=== PATIENT | female | born 1970 | race Caucasian/White ===

== ENCOUNTER 2016-11-04 13:01 | Emergency (ER) | payer MEDICARE, MEDICAID ==
[~2016-11-04] VITALS: Ht 154.9 cm; Wt 58.1 kg
[2016-11-04] MEDS ORDERED: HYDROMORPHONE2 MG PO (13:32)
[2016-11-04] MEDS ORDERED: ZUPLENZ4 M1 PO (13:33)
[2016-11-04] MEDS ORDERED: WELLBUTRIN SR150 MG PO (13:33)
[2016-11-04] MEDS ORDERED: KLONOPIN0.5 MG PO (13:33)
[2016-11-04] MEDS ORDERED: VENLAFAXINE75 M1 PO (13:33)
[2016-11-04] MEDS ORDERED: IBU800 M1 PO (13:34)
[2016-11-04] MEDS ORDERED: METAXALL800 MG PO (13:34)
[2016-11-04] MEDS ORDERED: VICO75300 PO (13:35)
[2016-11-04 14:08] LABS: BASO # 0.1 10*3/uL (0.0-0.1); BASO % 0.7 % (0.0-1.0); EOS # 0.1 10*3/uL (0.0-0.4); EOS % 0.6 % (1.0-4.0); HEMATOCRIT 44.1 % (37.0-47.0); HEMOGLOBIN 15.1 g/dl (12.0-16.0); LYMPH # 2.8 10*3/uL (1.3-4.4); LYMPH % 27.1 % (27.0-41.0); MEAN CELL VOLUME 92.6 fl (81.0-99.0); MEAN CORPUSCULAR HGB 31.7 pg (27.0-31.0); MEAN CORPUSCULAR HGB CONC 34.2 g/dl (33.0-37.0); MEAN PLATELET VOLUME 9.9 fl (9.6-12.3); MONO # 0.6 10*3/uL (0.1-1.0); MONO % 6.1 % (3.0-9.0); NEUT # 6.8 10*3/uL (2.3-7.9); NEUT % 65.2 % (47.0-73.0); PLATELET COUNT AUTOMATED 351 10*3/uL (130-400); RED BLOOD COUNT 4.76 10*6/uL (4.10-5.10); RED CELL DISTRI WIDTH 12.8 % (0-14.5); WHITE BLOOD COUNT 10.4 10*3/uL (4.8-10.8)
[2016-11-04 14:26] LABS: ALBUMIN 3.7 gm/dl (3.1-4.5); ALKALINE PHOSPHATASE 65 U/L (45-117); BILIRUBIN, TOTAL 0.3 mg/dl (0.2-1.0); BUN 10 mg/dl (7-24); CARBON DIOXIDE 28 mmol/L (21-32); CHLORIDE 105 mmol/L (98-107); CPK 135 U/L (26-192); EST GLOM FILT AFRICAN AMERICAN > 60 ml/min; GLUCOSE 96 mg/dL (65-99); POTASSIUM 4.2 mmol/L (3.5-5.1); SGOT/AST 14 IU/L (3-35); SGPT/ALT 24 U/L (12-78); SODIUM 138 mmol/L (136-145)
== END 2016-11-04 15:34 | disposition home or self-care (01) ==
LOC: ED 13:01
PROVIDERS: Student in an Organized Health Care Education/Training Program
DX: M79.604 Pain in right leg (principal); F17.200 Nicotine dependence, unspecified, uncomplicated; Z79.899 Other long term (current) drug therapy; Z88.0 Allergy status to penicillin; Z88.8 Allergy status to other drugs, medicaments and biological substances

== ENCOUNTER 2017-07-09 22:17 | Emergency (ER) | payer MEDICARE, OTHER ==
[~2017-07-09] VITALS: Ht 154.9 cm; Wt 59.0 kg
[~2017-07-09 22:17] MED LIST: HYDROMORPHONE2 MG PO; IBU800 M1 PO; KLONOPIN0.5 MG PO; METAXALL800 MG PO; VENLAFAXINE75 M1 PO; VICO75300 PO; WELLBUTRIN SR150 MG PO; ZUPLENZ4 M1 PO
[2017-07-09] MEDS ORDERED: CAMBIA50 MG PO (22:28)
[2017-07-09] MEDS ORDERED: WELLBUTRIN SR200 MG PO (22:29)
[2017-07-09] MEDS ORDERED: ONDANSETRON HYDR4 M1 PO (22:29)
[2017-07-09] MEDS ORDERED: SEPTDS PO (22:39)
[2017-07-09] MEDS ORDERED: ALLEGRA-D 24 H1 EACH PO (22:39)
[2017-07-09] MEDS ORDERED: FLONASE ALLERG9.9 ML NAS (22:39)
== END 2017-07-10 00:52 | disposition home or self-care (01) ==
LOC: ED 22:17
DX: J01.90 Acute sinusitis, unspecified (principal); B34.9 Viral infection, unspecified; F17.200 Nicotine dependence, unspecified, uncomplicated; Z90.710 Acquired absence of both cervix and uterus; Z79.899 Other long term (current) drug therapy; Z88.0 Allergy status to penicillin; Z88.8 Allergy status to other drugs, medicaments and biological substances

== ENCOUNTER 2018-10-16 22:07 | Emergency (ER) | payer MEDICARE, OTHER ==
[~2018-10-16] VITALS: Ht 154.9 cm; Wt 61.2 kg
[~2018-10-16 22:07] MED LIST changes: +ALLEGRA-D 24 H1 EACH PO; +CAMBIA50 MG PO; +FLONASE ALLERG9.9 ML NAS; +ONDANSETRON HYDR4 M1 PO; +SEPTDS PO; +WELLBUTRIN SR200 MG PO
== END 2018-10-17 00:59 | disposition home or self-care (01) ==
LOC: ED 22:07
DX: S93.401A Sprain of unspecified ligament of right ankle, initial encounter (principal); Z88.0 Allergy status to penicillin; Z88.8 Allergy status to other drugs, medicaments and biological substances; Z79.899 Other long term (current) drug therapy; X50.1XXA Overexertion from prolonged static or awkward postures, initial encounter; Y93.01 Activity, walking, marching and hiking; Y92.098 Other place in other non-institutional residence as the place of occurrence of the external cause; Y99.8 Other external cause status

== ENCOUNTER → 2018-11-16 | Outpatient (CLI) | payer MEDICARE, OTHER | END | disposition home or self-care (01) | LOC: RAD 15:27 | DX: K59.00 Constipation, unspecified (principal) ==

== ENCOUNTER → 2019-08-15 | Outpatient (CLI) | payer OTHER ==
[2019-08-15 15:35] LABS: BASO # 0.1 10*3/uL (0.0-0.1); EOS # 0.1 10*3/uL (0.0-0.4); EOS % 1.8 % (1.0-4.0); HEMATOCRIT 45.7 % (37.0-47.0); HEMOGLOBIN 15.4 g/dl (12.0-16.0); LYMPH # 1.8 10*3/uL (1.3-4.4); LYMPH % 23.3 % (27.0-41.0); MEAN CELL VOLUME 93.8 fl (81.0-99.0); MEAN CORPUSCULAR HGB 31.6 pg (27.0-31.0); MEAN CORPUSCULAR HGB CONC 33.7 g/dl (33.0-37.0); MEAN PLATELET VOLUME 10.8 fl (9.6-12.3); MONO % 12.5 % (3.0-9.0); NEUT # 4.8 10*3/uL (2.3-7.9); PLATELET COUNT AUTOMATED 256 10*3/uL (130-400); RED BLOOD COUNT 4.87 10*6/uL (4.10-5.10); RED CELL DISTRI WIDTH 13.2 % (0-14.5); WHITE BLOOD COUNT 7.8 10*3/uL (4.8-10.8)
== END | disposition home or self-care (01) ==
LOC: LAB 15:01
PROVIDERS: Family Medicine
DX: N95.1 Menopausal and female climacteric states (principal); L08.9 Local infection of the skin and subcutaneous tissue, unspecified

== ENCOUNTER → 2019-11-07 | Outpatient (CLI) | payer MEDICARE | END | disposition home or self-care (01) | LOC: NM 06:45 | DX: K81.9 Cholecystitis, unspecified (principal); I50.20 Unspecified systolic (congestive) heart failure; Z85.820 Personal history of malignant melanoma of skin ==

== ENCOUNTER → 2023-02-23 | Outpatient (CLI) | payer OTHER, MEDICAID | END | disposition home or self-care (01) | LOC: CARD 09:30 | PROVIDERS: ATTEND Internal Medicine Cardiovascular Disease | DX: R00.2 Palpitations (principal); I51.7 Cardiomegaly ==

== ENCOUNTER → 2024-02-15 | Outpatient (CLI) | payer OTHER, MEDICAID | END | disposition home or self-care (01) | LOC: RAD 15:46 | PROVIDERS: ATTEND Chiropractor | DX: M50.322 Other cervical disc degeneration at C5-C6 level (principal); M54.6 Pain in thoracic spine ==